=== PATIENT | male | born 1980 | race Caucasian/White ===

== ENCOUNTER → 2016-10-24 | Outpatient (CLI) | payer BC ==
--- NOTE | 2016-10-24 10:16 | US ---
EXAMINATION TYPE: US abdomen limited DATE OF EXAM: 10/24/2016 9:19 AM COMPARISON: NONE CLINICAL HISTORY: K08.80 Colitis with obstruction. Diarrhea for a few months, no pain or vomiting EXAM MEASUREMENTS: Liver Length: 14.0 cm Gallbladder Wall: 0.2 cm CBD: 0.5 cm Right Kidney: 10.8 x 4.8 x 6.2 cm overlying bowel gas limits exam Pancreas: limited views appear wnl Liver: intercostal views only, unable to visualize left Gallbladder: +SHANTA, gb full of stones Evidence for sonographic Agarwal's sign: no CBD: wnl Right Kidney: 1.4cm mid pole renal cyst versus IMPRESSION: 1. Cholelithiasis without wall thickening or pericholecystic fluid.
== END ==
LOC: RADUSWWP 09:00
PROVIDERS: ATTEND Family Medicine
DX: K80.20 Calculus of gallbladder without cholecystitis without obstruction (principal)
CPT/HCPCS: 76705

== ENCOUNTER → 2021-07-25 | Outpatient (CLI) | payer BC ==
[~2021-07-25] MED LIST: CASIRIVIMAB/IMDEVIMAB (EUA) 1,200 MG in SODIUM CHLORIDE 0.9% 100 ML IVPB NR; SODIUM CHLORIDE 0.9% 50 ML IVPB NR; SODIUM CHLORIDE 0.9% 500 ML 500 ML in EMPTY BAG 1 BAG IV PRN
[2021-07-25 13:24] VITALS: TEMP 97.2
[2021-07-25 14:06] VITALS: RESP 16
[2021-07-25 15:08] VITALS: BP 134/76; PULSE 69
== END | disposition home or self-care (01) ==
LOC: PROCWHC3 13:10
PROVIDERS: ATTEND Family Medicine
DX: U07.1 COVID-19 (principal)
CPT/HCPCS: 96360; Q0243; M0243

== ENCOUNTER → 2021-10-24 | Outpatient (CLI) | payer BC ==
--- NOTE | 2021-10-24 16:13 | MR ---
EXAMINATION TYPE: MR lumbar spine wo con DATE OF EXAM: 10/24/2021 COMPARISON: NONE HISTORY: LBP, RLE radiculopathy. TECHNIQUE: Multiplanar, multisequence imaging of the lumbar spine is performed without IV contrast. FINDINGS: Sagittal images of the lumbar spine show vertebral body heights to appear satisfactory. The re is grade 1 retrolisthesis L3 on L4. Multilevel disc desiccation. There is mild disc space narrowin g L3-L4 and L4-L5 levels. The conus medullaris is normal in position and signal ending superior L1 le roman. The bone marrow signal intensity is within normal limits. Axial images show T12-L1, L1-L2, and L2-L3 levels all to appear within normal limits. Axial images at L3-L4 level shows mild facet degenerative changes. There is mild broad disc bulge wit h central disc protrusion component effacing anterior thecal sac. Patent bilateral neural foramina. Axial images at L4-L5 level show mild/moderate right greater than left facet arthropathy. There is br oad-based right paracentral disc protrusion effacing the anterolateral thecal sac and right lateral r ecess. There is asymmetric mild right-sided inferior neural foraminal narrowing. There is suspected e ffacement of the central right L5 nerve axial image 7. Axial images at the L5-S1 level shows moderate right greater than left facet arthropathy. Spinal rachel l is preserved. Bilateral neural foramina are patent. Paraspinal muscle bulk is maintained. IMPRESSION: Degenerative changes greatest at L3-L4 and L4-L5 level as detailed above. Largest disc he rniation L4-L5 level is felt to encroach on the central right L5 nerve.
== END | disposition home or self-care (01) ==
LOC: RADMRIMAIN 14:25
PROVIDERS: ATTEND Neurological Surgery
DX: M48.062 Spinal stenosis, lumbar region with neurogenic claudication (principal)
CPT/HCPCS: 72148